=== PATIENT | male | born 1985 | race Caucasian/White ===

== ENCOUNTER 2024-03-06 15:26 | Emergency (ER) | payer OTHER ==
[2024-03-06] MEDS: ceFAZolin 2 GM Vial IVPUSH ONE (17:02)
[2024-03-06] MEDS: Diphtheria,Pertussis(Acell),Tetanus Vaccine 0.5 ML Syringe IM ONE (17:03)
[2024-03-06 17:40] VITALS: BP 128/78; PULSE 105
== END 2024-03-06 17:28 ==
LOC: FB.ED 15:26
DX: S62.501B Fracture of unspecified phalanx of right thumb, initial encounter for open fracture (principal); F17.210 Nicotine dependence, cigarettes, uncomplicated; Z23 Encounter for immunization; Z79.899 Other long term (current) drug therapy; W20.8XXA Other cause of strike by thrown, projected or falling object, initial encounter; Y99.0 Civilian activity done for income or pay; Y92.89 Other specified places as the place of occurrence of the external cause
CPT/HCPCS: 73130; 90471; 90715; 96374; 99000; 99284; J0690